=== PATIENT | male | born 1975 | race Caucasian/White ===

== ENCOUNTER 2020-09-15 10:21 | Emergency (ER) | payer BC ==
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
--- NOTE | 2020-09-15 11:35 | CR ---
Indication: Pain Comparison: None available. Technique: AP internal, external rotation, and scapular-Y views left shoulder were obtained Findings: There is no displaced fracture or dislocation. Degenerative changes of the acromioclavicular and glenohumeral joints are appreciated with marginal osteophyte formation. The soft tissues are unremarkable. Impression: [id number] degenerative changes of the acromioclavicular and glenohumeral joints without acute osseous abnormality. Follow-up with MRI to assess for internal derangement. Dictated by Jalil Vasques MD @ Sep 15 2020 11:32AM Signed by Dr. Jalil Vasques @ Sep 15 2020 11:33AM
[2020-09-15 12:02] VITALS: BP 129/70; PULSE 69
== END 2020-09-15 12:00 | disposition home or self-care (01) ==
LOC: MW.ED 10:21
DX: S49.92XA Unspecified injury of left shoulder and upper arm, initial encounter (principal); E66.9 Obesity, unspecified; Z68.39 Body mass index [BMI] 39.0-39.9, adult; Z88.5 Allergy status to narcotic agent; Z91.048 Other nonmedicinal substance allergy status; V86.52XA Driver of snowmobile injured in nontraffic accident, initial encounter
CPT/HCPCS: 73030-26-LT; 73030-LT; 99283; 99283-25